=== PATIENT | male | born 1955 | race Caucasian/White ===

== ENCOUNTER 2020-05-30 17:45 | Emergency (ER) | payer OTHER, SELFPAY ==
[2020-05-30 17:50] VITALS: BP 149/104; PULSE 88; RESP 24; TEMP 36.7; O2SAT 98; BMI 25.1
--- NOTE | 2020-05-30 18:20 | HMH.EDUTC ---
[facility] [place] Disposition Clinical Impression: Acute stress reaction Disposition: Home, Self-Care Condition on Discharge: Good Instructions: DI for Anxiety -- Adult, Hydroxyzine Additional Instructions: Follow up with your primary care physician as you already have scheduled. Take the vistaril (hydroxyzine) for anxiety. This is a short acting medication that is usually good for anxiety. It doesn't need to build up in your system. You take it only as needed for anxiousness. It may make you drowsy, so don't fall after taking it. Don't drive or operate heavy machinery after taking the medication. GO TO THE ER FOR ANY WORSENING SYMPTOMS. BE VERY MINDFUL ABOUT ANY SUICIDAL IDEATIONS. GO STRAIGHT TO THE ER IF YOU HAVE ANY. Prescriptions: hydrOXYzine pamoate [Vistaril 25mg capsule] 25 mg PO Q6H PRN #30 cap PRN Reason: Anxiety Transmission Status: Re[facility] by [id number] Referrals: Reese Byrd MD [Primary Care Provider] - Time of Disposition: 18:30 Medical Decision Making - Medical Records Medical records reviewed: No: I reviewed the patient's medical records. - [place] Inquiry Pt receiving controlled substance: No Vital Signs: 05/30/20 17:50 05/30/20 18:43 Temperature 98.0 F 98.0 F Temperature Source Temporal Artery Scan Pulse Rate 88 Pulse Rate [Right Brachial] 88 Respiratory Rate 24 24 Blood Pressure 149/104 H Blood Pressure [Right Arm] 149/104 H Blood Pressure Mean [Right Arm] 119 Blood Pressure Source [Right Arm] Automatic Cuff Blood Pressure Position [Right Arm] Sitting 02 Sat by Pulse Oximetry 98 Oxygen Delivery Method Room Air Orders (Tests/Meds): ED MEDICATIONS Discontinued Medications Generic Name Dose Route Start Last Admin Trade Name Freq PRN Reason Stop Dose Admin Hydroxyzine Pamoate 25 mg 05/30/20 18:25 05/30/20 18:28 Hydroxyzine Pamoate 25mg Capsule PO 05/30/20 18:26 25 mg ONCE ONE Administration [facility] HPI - General Stated complaint: anxiety/nervousness Time Seen by Provider: 05/30/20 18:20 Mode of Arrival: Ambulatory Source of Information: Patient, Spouse Limitations: No Limitations Description of Symptoms (Recalled from Triage Doc. by RN): PATIENT C/O INTERMITTEN ANXIETY SINCE SUNDAY. SAW PCP ON SUNDAY AND IS AWAITING BLOOD WORK. HEENT Symptoms (Recalled from RN notes): No Resp Symptoms (Recalled from RN notes): No Skin Symptoms (Recalled from RN notes): No MS Symptoms (Recalled from RN notes): No Functional Status (Recalled from RN notes): WNL - History of Present Illness Provider Complaint: He states that he has been having what he describes as an anxious feeling that's getting worse for the past 4 to 5 days. He saw his pcp on Sunday for this and blood work was drawn. He has f/u appt this week to go over the blood work and possibly start on a medication for this feeling. He denies any SI or HI. - Related Data Previous Rx's Medication Instructions Recorded hydrOXYzine pamoate [Vistaril 25mg 25 mg PO Q6H PRN #30 cap 05/30/20 capsule] Allergies Allergy/AdvReac Type Severity Reaction Status Date / Time Penicillins Allergy Verified 05/30/20 18:14 - Worker's Comp Is this a Worker's Comp case?: No [facility] History - Hepatitis A Screen Drug use history?: No High risk sexual behaviors?: No History of sexually transmitted infection?: No Currently employed?: No Childcare worker?: No Do you have indoor plumbing?: Yes Do you have electricity?: Yes Attestation statement:: This patient has been screened for Hepatitis A risk factors. I have reviewed the patient's past medical history: Yes - Social History Alcohol Intake: never Occupational Status: other ROS Obtained: Yes All systems reviewed & no additional complaints - Constitutional Constitutional: Denies body ache, Denies chills, Denies fever(s), Reports poor appetite, Denies malaise - Eyes Eyes: Denies blurry vision, Denies change in vision,
[2020-05-30 18:43] VITALS: BP 149/104; PULSE 88; RESP 24; TEMP 36.7; O2SAT 98
== END 2020-05-30 18:56 | disposition home or self-care (01) ==
PROVIDERS: Emergency Provider Nurse Practitioner Family; PCP Family Medicine
DX: F43.0 Acute stress reaction (principal); Z88.0 Allergy status to penicillin
CPT/HCPCS: 99202; G0463

== ENCOUNTER 2021-02-25 01:10 | Emergency (ER) | payer OTHER, SELFPAY ==
[2021-02-25] VITALS (8 sets, daily range): BP systolic 170–194; BP diastolic 102–119; PULSE 76–89; RESP 12–16; TEMP 36.6–36.9; O2SAT 97–100; BMI 26.2
--- NOTE | 2021-02-25 | ECG_ITS ---
APPROVED REPORT Exam: Resting ECG HR:79 bpm ECG Measurements Heart Rate 79 AXES WI 138 P 103 QRSd 94 QRS 81 QT 388 T 104 QTc 444 Conclusion Normal sinus rhythm Lateral infarct, age undetermined Abnormal ECG Electronically signed by : Anil Do MD 02/25/2021 12:10:19
--- NOTE | 2021-02-25 01:38 | XR_ITS ---
PROCEDURE INFORMATION: Exam: XR Chest Exam date and time: 02/25/2021 1:38 AM Age: 65 years old Clinical indication: Other: Anxiety TECHNIQUE: Imaging protocol: XR of the chest. Views: 2 views. COMPARISON: No relevant prior studies available. FINDINGS: Lungs: Unremarkable. No consolidation. Pleural spaces: No pleural effusion. No pneumothorax. Heart/Mediastinum: Normal heart size. Mild aortic atherosclerosis. Bones/joints: Mild thoracic spondylosis. IMPRESSION: No acute findings.
[2021-02-25 01:45] LABS: Basophils # 0.1 K/mm3 (0-0.2); Basophils % 0.9 % (0.1-2.0); Eosinophils # 0.2 K/mm3 (0.0-0.4); Eosinophils % 2.3 % (0.1-12.0); Hematocrit 45.1 % (42.0-52.0); Hemoglobin 15.4 g/dL (14.1-18.0); Lymphocytes # 1.5 K/mm3 (0.7-4.5); Lymphocytes % 21.7 % (10-50); Mean Corpuscular HGB Conc 34.2 g/dL (31.8-35.4); Mean Corpuscular Hemoglobin 30.2 pg (27.0-31.2); Mean Corpuscular Volume 88.3 fl (80-94); Mean Platelet Volume 8.2 fl (7.4-10.4); Monocytes # 0.5 K/mm3 (0.1-1.0); Monocytes % 6.5 % (1.7-9.3); Neutrophils # 4.8 K/mm3 (1.8-7.8); Neutrophils % 68.6 % (37.0-80.0); Platelet Count 160 K/mm3 (142-424); Red Blood Count 5.11 M/mm3 (4.60-6.20); Red Cell Distribution Width 13.4 % (11.5-17.5); White Blood Count 6.9 K/mm3 (4.8-10.8)
[2021-02-25 01:48] LABS: Chloride 101 mmol/L (98-107); Potassium 3.6 mmoL/L (3.5-5.1); Sodium 138 mmol/L (136-145)
[2021-02-25 01:51] LABS: Alanine Aminotransferase 12 U/L (12-78); Albumin Level 4.5 g/dl (3.5-5.0); Albumin/Globulin Ratio 1.7 (1.1-1.8); Alkaline Phosphatase 87 U/L (38-126); Anion Gap 11.6 mEq/L (5-15); Aspartate Amino Transferase 30 U/L (17-59); Bilirubin,Total 0.6 mg/dl (0.2-1.3); Blood Urea Nitrogen 30 mg/dl (9-20); Calcium 9.1 mg/dl (8.4-10.2); Carbon Dioxide 29 mmol/L (22.0-30.0); Creatinine Clearance Estimated 66 mL/min (50-200); Estimated Glomerular Filt Rate 56 ml/min (>60); GFR (African American) 67 ML/MIN (>60); Globulin 2.7 g/dL (1.3-3.2); Glucose 114 mg/dl (74-100); Total Protein,Serum 7.2 g/dl (6.3-8.2)
[2021-02-25 01:57] LABS: C-Reactive Protein 0.7 mg/L (0-4)
[2021-02-25 02:07] LABS: Troponin I < 0.01 ng/ml (0.00-0.034)
[2021-02-25 02:09] LABS: Procalcitonin 0.057 ng/mL (0.0-2.0)
[2021-02-25 02:11] LABS: T4 (Thyroxine) 7.9 ug/dl (5.53-11.0)
--- NOTE | 2021-02-25 02:17 | PC.NURSE ---
pt states he feels llike my blood sugar is low . FS obtained and is 111.
--- NOTE | 2021-02-25 02:17 | HMH.EDANX ---
ED Disposition Clinical Impression: Acute anxiety, Elevated BP without diagnosis of hypertension Disposition: Home, Self-Care Condition on Discharge: Good Instructions: Anxiety Disorders Additional Instructions: call pcp for follow up Referrals: Reese Byrd MD [Primary Care Provider] - - Critical Care Critical Care Time: No Attestation: On 02/25/21, the high probability of a clinically significant, sudden or life threatening deterioration of the following system(s) required my full and direct attention, intervention and personal management. The time I documented below is in addition to time spent performing reported procedures but includes the following listed in this critical care notation. Medical Decision Making - Medical Records Medical records reviewed: Yes: I reviewed the patient's medical records. - [place] Inquiry Pt receiving controlled substance: No Vital Signs: 02/25/21 01:11 Temperature 97.8 F Temperature Source Oral Pulse Rate [Left] 89 Respiratory Rate 12 Blood Pressure [Right Arm] 194/119 H Blood Pressure Mean [Right Arm] 144 Blood Pressure Source [Right Arm] Automatic Cuff 02 Sat by Pulse Oximetry 100 Oxygen Delivery Method Room Air - Lab Data Lab results reviewed: Yes: I reviewed the patient's lab results. Lab Results 02/25/21 01:30: WBC 6.9, RBC 5.11, Hgb 15.4, Hct 45.1, MCV 88.3, MCH 30.2, MCHC 34.2, RDW 13.4, Plt Count 160, MPV 8.2, Neut % (Auto) 68.6, Lymph % (Auto) 21.7, Cascade % (Auto) 6.5, Eos % (Auto) 2.3, Baso % (Auto) 0.9, Neut # (Auto) 4.8, Lymph # (Auto) 1.5, Cascade # (Auto) 0.5, Eos # (Auto) 0.2, Baso # (Auto) 0.1, ESR 15 02/25/21 01:30: Sodium 138, Potassium 3.6, Chloride 101, Carbon Dioxide 29, Anion Gap 11.6, BUN 30 H, Creatinine 1.30 H, Estimated Creat Clear 66, Estimated GFR 56 L, Est GFR ( Amer) 67, Glucose 114 H, Calcium 9.1, Total Bilirubin 0.6, AST 30, ALT 12, Alkaline Phosphatase 87, Troponin I < 0.01, C-Reactive Protein 0.7, Total Protein 7.2, Albumin 4.5, Globulin 2.7, Albumin/Globulin Ratio 1.7, Procalcitonin 0.057 02/25/21 02:16: POC Glucose 111 H Result diagrams: 02/25/21 01:30 02/25/21 01:30 Orders (Tests/Meds): ED MEDICATIONS Generic Name Dose Route Start Last Admin Trade Name Freq PRN Reason Stop Dose Admin Sodium Chloride 1,000 mls @ 999 mls/hr 02/25/21 02:30 02/25/21 02:21 Sod Chlor 0.9% 1000ml Bag IV 02/25/21 03:30 999 mls/hr .Q1H1M SOTERO Administration ORDERS Category Date Time Status CXR 2 view (NOT portable) [XR chest 2V] Stat Exams 02/25/21 01:38 Taken C-Reactive Protein Stat Lab 02/25/21 01:30 Results Comprehensive Metabolic Panel Stat Lab 02/25/21 01:30 Results Procalcitonin Stat Lab 02/25/21 01:30 Results T4 (Thyroxine) Stat Lab 02/25/21 01:30 Results Thyroid Stimulating Hormone Stat Lab 02/25/21 01:30 Results Troponin I Q3H Lab 02/25/21 04:45 Ordered Troponin I Q3H Lab 02/25/21 07:45 Ordered Troponin I Stat Lab 02/25/21 01:30 Results - Radiology Data #1 Image(s): Chest Image Reviewed: Yes I have reviewed radiologist's interpretation Preliminary Findings: Normal/NAD - ECG Data Tracing #1 Normal Sinus Rhythm: Yes Ischemic changes: non-specific ST-T wave changes Medical Decision Narrative: reports blood pressure ok at pcp and has stable exam and labs - discussed with pt to discuss anxiety with pcp and monitor bp at home Anxiety HPI - General Chief Complaint: Anxiety Stated Complaint: Anexity Time Seen by Provider: 02/25/21 01:35 Mode of Arrival: Family Vehicle Source of Information: Patient, Medical Record Limitations: No Limitations Description of Symptoms (Recalled from ER Triage Doc. by RN): pt states that he started taking citalopram again just yesterday and took his dose tonight and he had anaxiety attack and now can not get rid og the anxious feeling - History of Present Illness HPI narrative: pt with anxiety and recently started on celexa - no chest
[2021-02-25 02:23] LABS: POC Glucose,Bedside 111 (70-110)
[2021-02-25 02:24] LABS: Thyroid Stimulating Hormone 2.48 uIU/mL (0.465-4.68)
[2021-02-25 02:27] LABS: Erythrocyte Sedimentation Rate 15 mm/hr (0-20)
--- NOTE | 2021-02-25 03:03 | PC.NURSE ---
Dr. Zambrano s/w Dr. Byrd
== END 2021-02-25 03:28 | disposition home or self-care (01) ==
PROVIDERS: Emergency Provider Emergency Medicine; PCP Family Medicine
DX: F41.9 Anxiety disorder, unspecified (principal); R03.0 Elevated blood-pressure reading, without diagnosis of hypertension
CPT/HCPCS: 71046; 80053; 82962; 84145; 84436; 84443; 84484; 85025; 85651; 86140; 93005; 96365; 99283

== ENCOUNTER → 2022-02-07 08:40 | Outpatient (CLI) | payer MEDICARE, OTHER, SELFPAY ==
[2022-02-07 09:55] LABS: Alanine Aminotransferase 15 U/L (12-78); Albumin Level 4.1 g/dl (3.5-5.0); Albumin/Globulin Ratio 1.7 (1.1-1.8); Alkaline Phosphatase 107 U/L (38-126); Anion Gap 13.6 mEq/L (5-15); Aspartate Amino Transferase 23 U/L (17-59); Bilirubin,Total 0.4 mg/dl (0.2-1.3); Blood Urea Nitrogen 19 mg/dl (9-20); Calcium 9.3 mg/dl (8.4-10.2); Carbon Dioxide 31 mmol/L (22.0-30.0); Chloride 101 mmol/L (98-107); Chol/HDL Ratio 4.8 (1-3.5); Cholesterol 186 mg/dl (140-200); Estimated Glomerular Filt Rate 75 ml/min (>60); GFR (African American) 91 ML/MIN (>60); Globulin 2.4 g/dL (1.3-3.2); Glucose 98 mg/dl (74-100); HDL Cholesterol 39 mg/dl (40-60); Potassium 4.6 mmoL/L (3.5-5.1); Sodium 141 mmol/L (136-145); Total Protein,Serum 6.5 g/dl (6.3-8.2); Triglycerides 224 mg/dl (30-150); VLDL Cholesterol 45 mg/dL (0-40)
[2022-02-07 10:06] LABS: Direct LDL Cholesterol 42.52 mg/dL (100-129)
[2022-02-07 10:26] LABS: Prostate Specific Ag Screen 3.2 ng/ml (0.0-4.0)
== END ==
PROVIDERS: PCP Family Medicine; Visit Provider Family Medicine
DX: Z00.00 Encounter for general adult medical examination without abnormal findings (principal); F41.8 Other specified anxiety disorders; Z12.5 Encounter for screening for malignant neoplasm of prostate; Z79.899 Other long term (current) drug therapy
CPT/HCPCS: 36415; 80053; 80061; G0103

== ENCOUNTER 2022-05-24 11:10 | Emergency (ER) | payer MEDICARE, OTHER, SELFPAY ==
[2022-05-24 11:45] VITALS: BP 143/91; PULSE 69; RESP 20; TEMP 36.7; O2SAT 99; BMI 24.5
--- NOTE | 2022-05-24 12:05 | EXP.UTC ---
Discharge Plan Disposition Patient Disposition: Home, Self-Care Condition: Good Prescriptions Prescriptions: No Action citalopram 20 MG tablet 20 mg PO DAILY Referrals Follow up/Referrals: Reese Byrd MD [Primary Care Provider] - See instructions Activity Restrictions/Add. Instructions Additional Instructions/Restrictions: Make sure to follow up witn your Family Doctor GO straight to ER if any life threatening symptoms or any further episodes like before Return if needed Straight to ER if any life threatening symptoms Clinical Impressions Clinical Impression: Light-headed feeling Instructions Patient Instructions: DI for Hypoglycemia, Dizziness, Nonvertigo Discharge ED Provider: Elysia Alvarez [facility] [place] [place] HPI General Stated complaint: lighted headed, weak Mode of Arrival: Ambulatory Source of Information: Patient Limitations: No Limitations Time Seen by Provider: 05/24/22 12:06 Description of Symptoms (Recalled from Triage Doc. by RN): PATIENT STATES HE WAS STANDING FIXING BREAKFAST THIS MORNING AND HAD AN EPISODE OF LIGHT-HEADEDNESS. HE STATES HE DID NOT PASS OUT, BUT FELT LIKE HE WAS GOIND TO. DENIES ANY PREVIOUS EPISODES LIKE THIS. HEENT Symptoms (Recalled from RN notes): Yes Resp Symptoms (Recalled from RN notes): No Skin Symptoms (Recalled from RN notes): No MS Symptoms (Recalled from RN notes): No Functional Status (Recalled from RN notes): WNL History of Present Illness Provider Complaint: Patient states that he has been dieting and doing intermittent fasting States that he hadnt eaten or drink anything since yesterday evening States this morning he was fixing him some breakfast and felt light headed and a little sweaty States that he did not pass out but had to sit down for a min States that he eat some toast and orange and felt better Denies chest pain denies hx of blood sugar problems States that he feels fine now but family wanted him to come in and just get looked at Related Data Home Medications Medication Instructions Recorded Confirmed citalopram 20 mg tablet 20 mg PO DAILY Anxiety 02/25/21 02/25/21 Allergies Allergy/AdvReac Type Severity Reaction Status Date / Time Penicillins Allergy Verified 05/30/20 18:14 Worker's Comp Is this a Worker's Comp case?: No [facility] Disclaimer: The information contained in this section may have been updated after the patient was seen, as this information can be updated by other users. Social History Smoking Status: Never smoker alcohol intake: never current occupational status: other Travel in the last 8 weeks: None ROS Obtained: Yes All systems reviewed & no additional complaints except as documented and Yes Systems reviewed as appropriate & no additional complaints except as documented Constitutional Constitutional: Reports system reviewed and no additional complaints, except as documented, Reports as per HPI, Denies body ache, Denies chills and Denies headache(s) Eyes Eyes: Denies loss of vision ENT Ears, Nose, Mouth, and Throat: Reports system reviewed and no additional complaints, except as documented, Reports as per HPI, Denies abnormal hearing and Denies headache(s) Cardiovascular Cardiovascular: Reports system reviewed and no additional complaints, except as documented, Reports as per HPI, Denies chest pain, Denies chest pain at rest, Reports lightheadedness (earlier but felt better after eating), Denies palpitations and Denies syncope Respiratory Respiratory: Reports system reviewed and no additional complaints, except as documented and Reports as per HPI Gastrointestinal Gastrointestingal: Reports system reviewed and no additional complaints, except as documented and as per HPI Musculoskeletal Musculoskeletal: Denies numbness Neurologic Neurologic: Reports system reviewed and no additional complaints, except as documented, Reports as per HPI, Denies abnormal hearing, Denies abnormal movements, Denies abnormal speech
[2022-05-24 12:18] VITALS: BP 143/91; PULSE 69; RESP 20; TEMP 36.7; O2SAT 99
[2022-05-24 12:23] LABS: POC Glucose,Bedside 133 (70-110)
== END 2022-05-24 12:25 | disposition home or self-care (01) ==
PROVIDERS: Emergency Provider Nurse Practitioner; PCP Family Medicine
DX: R42 Dizziness and giddiness (principal)
CPT/HCPCS: 82962; 99212; G0463